=== PATIENT | male | born 2005 ===

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

== ENCOUNTER 2024-08-05 22:02 | Emergency (ER) | payer OTHER ==
[~2024-08-05] VITALS: Ht 175.3 cm; Wt 80.7 kg
[2024-08-05] MEDS ORDERED: AUG875T PO (22:42)
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
[2024-08-06 00:35] VITALS: BP 125/72; PULSE 74; RESP 13; TEMP 99; O2SAT 100
[2024-08-06] MEDS: TETANUS-DIPTH-ACEL PERTUSSIS 0.5ML SYR Tdap IM ONE (00:45)
== END 2024-08-06 00:54 | disposition home or self-care (01) ==
LOC: ER 22:02
DX: S51.852A Open bite of left forearm, initial encounter (principal); Z79.1 Long term (current) use of non-steroidal anti-inflammatories (NSAID); Z23 Encounter for immunization; Y04.1XXA Assault by human bite, initial encounter; Y93.89 Activity, other specified; Y92.69 Other specified industrial and construction area as the place of occurrence of the external cause; Y99.8 Other external cause status
CPT/HCPCS: 90471; 90715